=== PATIENT | female | born 1955 | race Caucasian/White ===

== ENCOUNTER 2017-09-07 20:59 | Emergency (ER) | payer OTHER ==
[~2017-09-07 20:59] MED LIST: ESOM20CA PO; OXYC5TAB PO
[2017-09-07 21:01] VITALS: TEMP 36.4; Ht 236.2 cm
[2017-09-07] MEDS ORDERED: SODIUM CHLORIDE 0.9% 1000ML 1,000 ML IV STA (21:32)
[2017-09-07] MEDS ORDERED: ONDANSETRON INJ 2 MG/ML 2 ML VIAL IV STA (21:32)
[2017-09-07] MEDS ORDERED: KETOROLAC TROMETHAMINE 30 MG/ML VIAL IV STA (21:32)
[2017-09-07] MEDS: HYDROmorphone INJ 0.5 MG/0.5 ML SYR IV PRN ×2 (21:40→22:04)
[2017-09-07 21:42] LABS: BASO % 0.1 %; BASO ABS # 0.01 K/uL (0-0.2); COMPLETE YES; EOS % 2.2 %; HEMATOCRIT 42.8 % (37-47); IG% 0.2 %; LYMPH % 20.6 %; LYMPH ABS # 2.02 K/uL (1.2-3.4); MEAN CELL VOLUME 83.6 fL (80-100); MEAN CORPUSCULAR HEMOGLOBIN 28.1 pg (25-34); MEAN CORPUSCULAR HGB CONC 33.6 g/dl (32-36); MEAN PLATELET VOLUME 9.4 fL (7.4-10.4); MONO % 5.3 %; NEUT % 71.6 %; PLATELET COUNT 309 K/uL (130-400); RED BLOOD COUNT 5.12 M/uL (4.2-5.4); WHITE BLOOD COUNT 9.79 K/uL (4.8-10.8)
[2017-09-07 21:48] LABS: ALT/SGPT 21 U/L (12-78); BLOOD UREA NITROGEN 22 mg/dl (7-18); CALCIUM 8.9 mg/dl (8.5-10.1); CARBON DIOXIDE 26 mmol/L (21-32); CHLORIDE 102 mmol/L (98-107); CREATININE 0.76 mg/dl (0.60-1.20); GLUCOSE 123 mg/dl (70-99); POTASSIUM 3.5 mmol/L (3.5-5.1); SODIUM 136 mmol/L (136-145)
[2017-09-07 21:51] LABS: ALKALINE PHOSPHATASE 80 U/L (45-117); AST/SGOT 17 U/L (15-37)
[2017-09-07 21:53] LABS: URINE APPEARANCE CLEAR (CLEAR); URINE BILIRUBIN NEG (NEG); URINE COLOR YELLOW; URINE NITRITE NEG (NEG); URINE PH 7.5 (4.5-7.5); URINE SPECIFIC GRAVITY 1.015 (1.000-1.030); UROBILINOGEN NEG (NEG)
[2017-09-07 21:57] LABS: MANUAL MICROSCOPIC REQUIRED? NO; REVIEW REQ? NO
--- NOTE | 2017-09-07 22:29 | DIAGNOSTIC IMAGING REPORT ---
ABD/PELVIS WITHOUT FOR STONE CLINICAL HISTORY: 62 years-old Female presenting with FLANK PAIN-right . TECHNIQUE: Multidetector CT of the abdomen and pelvis was performed without the use of intravenous contrast. IV contrast: None. A dose lowering technique was used consistent with the principles of ALARA (as low as reasonably achievable). COMPARISON: 08/15/2015. CT DOSE (mGy.cm): The estimated cumulative dose is 1048.86 mGy.cm. FINDINGS: Car Driver topogram: Unremarkable. Lung bases: Lungs and pleural spaces clear. Normal heart size. No pericardial or pleural effusion. Masslike region in the right breast (series 3 image 1). Liver: Normal morphology. Normal density. Biliary: No gross biliary ductal dilatation allowing for noncontrast technique. Mild gallbladder wall thickening suggested. The gallbladder is nondistended. No pericholecystic fluid or inflammatory change. Pancreas: Normal noncontrast appearance. Spleen: Normal noncontrast appearance. Adrenal glands: Normal noncontrast appearance. Kidneys and ureters: Multiple bilateral nonobstructing calculi, the largest on the right measuring 3 mm and the largest on the left measuring 2 mm. No hydronephrosis. Ureters normal. Bladder: Mild circumference of bladder wall thickening. Pelvic organs: Normal noncontrast appearance. Bowel: Normal appendix. No bowel obstruction. Peritoneal cavity: No free fluid or intraperitoneal gas. 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 Lymph nodes: Prominent subcentimeter mesenteric lymph nodes. No pathologically enlarged lymph nodes by CT size criteria. Vasculature: Atherosclerosis of the normal caliber abdominal aorta. Abdominal wall: Normal. Musculoskeletal: Normal. IMPRESSION: 1. Circumferential bladder wall thickening could suggest cystitis. Correlate with urinalysis. 2. Bilateral nephrolithiasis. No evidence of an obstructing calculus. No hydronephrosis. 3. Gallbladder wall thickening without other evidence to suggest cholecystitis. This is nonspecific. 4. Masslike region in the right breast. Dedicated mammographic evaluation recommended. Electronically signed by: Shukri Hollingsworth M.D. 09/07/2017 10:28 PM Dictated Date/Time: 09/07/2017 10:20 PM
--- NOTE | 2017-09-08 01:53 | EMERGENCY ROOM VISIT NOTE ---
History Report prepared by Ryan: Misti Potts Under the Supervision of: Dr. Jeff White M.D. First contact with patient: 21:09 Chief Complaint: KIDNEY STONE Stated Complaint: KIDNEY STONE History of Present Illness The patient is a 62 year old female who presents to the Emergency Room with complaints of an episode of kidney stones starting this evening. The patient states that she hasn't had a kidney stone in two years. She notes that she had a lithotripsy at that time. She states that the pain is a little better than it was. She states that at its peak the pain was a 12/10 in severity and currently rates her pain as a 7/10 in severity. She notes that the pain radiates from her back to her abdomen. She states that she took 3 Ibuprofen an hour and a half ago. The patient complains of nausea and vomiting. She notes that she has had a kidney infection in the past. She notes that she has not been drinking enough water lately. Pt denies LOC, headache, fevers, chills, diaphoresis, visual changes, neck pain , chest pain, breathing difficulties, melena, hematochezia, urinary symptoms, numbness, weakness, lymphadenopathy, rash, or other complaints. Source of History: patient Onset: this evening Position: other (global) Symptom Intensity: 7/10 Quality: other (like past kidney stones) Timing: other (episode) Associated Symptoms: + nausea, + vomiting, + abdominal pain, + back pain Review of Systems See HPI for pertinent positives and negatives. A total of ten systems were reviewed and were otherwise negative. Past Medical & Surgical Medical Problems: (1) History of kidney infection (2) Hx of renal calculi Surgical Problems: (1) Hx of lithotripsy Family History No pertinent family history Social History Smoking Status: Never Smoker Marital Status: Housing Status: lives with significant other Occupation Status: employed Current/Historical Medications Scheduled Esomeprazole Magnesium (Nexium), 20 MG PO QAM Allergies Coded Allergies: NO KNOWN DRUG ALLERGIES (Verified Allergy, Unknown, ., 09/07/17) Physical Exam Vital Signs Date Time Temp Pulse Resp B/P (MAP) Pulse Ox O2 Delivery O2 Flow Rate FiO2 09/08/17 01:55 80 18 139/74 98 Room Air 09/07/17 22:27 71 18 139/68 98 Room Air 09/07/17 21:01 36.4 68 18 172/120 99 Room Air Physical Exam GENERAL: Awake, alert, uncomfortable-appearing, in no distress HENT: Normocephalic, atraumatic. Oropharynx unremarkable. EYES: Normal conjunctiva. Sclera non-icteric. NECK: Supple. No nuchal rigidity. FROM. No JVD. RESPIRATORY: Clear to auscultation. CARDIAC: Regular rate, normal rhythm. Extremities warm and well perfused. Pulses equal. ABDOMEN: Soft, non-distended. RUQ tenderness to palpation. No rebound or guarding. No masses. RECTAL: Deferred. MUSCULOSKELETAL: Chest examination reveals no tenderness. The back is symmetrical on inspection without obvious abnormality. There is right CVA tenderness to palpation. No joint edema. LOWER EXTREMITIES: Calves are equal size bilaterally and non-tender. No edema. No discoloration. NEURO: Normal sensorium. No sensory or motor deficits noted. SKIN: No rash or jaundice noted. Medical Decision & Procedures ER Provider Diagnostic Interpretation: Radiology results as stated below per my review and radiologist interpretation: ABD/PELVIS WITHOUT FOR STONE CLINICAL HISTORY: 62 years-old Female presenting with FLANK PAIN-right . TECHNIQUE: Multidetector CT of the abdomen and pelvis was performed without the use of intravenous contrast. IV contrast: None. A dose lowering technique was used consistent with the principles of ALARA (as low as reasonably achievable). COMPARISON: 08/15/2015. CT DOSE (mGy.cm): The estimated cumulative dose is 1048.86 mGy.cm. FINDINGS: Health Assistant topogram: Unremarkable. Lung bases: Lungs and pleural spaces clear. Normal heart size. No pericardial or pleural effusion. Masslike region in the right breast (series 3 image 1). Liver: Normal morphology. Normal density. Biliary: No gross biliary ductal dilatation allowing for noncontrast technique. Mild gallbladder wall thickening suggested. The gallbladder is nondistended. No pericholecystic fluid or inflammatory change. Pancreas: Normal noncontrast appearance. Spleen: Normal noncontrast appearance. Adrenal glands: Normal noncontrast appearance. Kidneys and ureters: Multiple bilateral nonobstructing calculi, the largest on the right measuring 3 mm and the largest on the left measuring 2 mm. No hydronephrosis. Ureters normal. Bladder: Mild circumference of bladder wall thickening. Pelvic organs: Normal noncontrast appearance. Bowel: Normal appendix. No bowel obstruction. Peritoneal cavity: No free fluid or intraperitoneal gas. 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 Lymph nodes: Prominent subcentimeter mesenteric lymph nodes. No pathologically enlarged lymph nodes by CT size criteria. Vasculature: Atherosclerosis of the normal caliber abdominal aorta. Abdominal wall: Normal. Musculoskeletal: Normal. IMPRESSION: 1. Circumferential bladder wall thickening could suggest cystitis. Correlate with urinalysis. 2. Bilateral nephrolithiasis. No evidence of an obstructing calculus. No hydronephrosis. 3. Gallbladder wall thickening without other evidence to suggest cholecystitis. This is nonspecific. 4. Masslike region in the right breast. Dedicated mammographic evaluation recommended. Electronically signed by: Shukri Hollingsworth M.D. 09/07/2017 10:28 PM Dictated Date/Time: 09/07/2017 10:20 PM Laboratory Results 09/07/17 21:25 Red Blood Count 5.12, Mean Corpuscular Volume 83.6, Mean Corpuscular Hemoglobin 28.1, Mean Corpuscular Hemoglobin Concent 33.6, Mean Platelet Volume 9.4, Neutrophils (%) (Auto) 71.6, Lymphocytes (%) (Auto) 20.6, Monocytes (%) (Auto) 5.3, Eosinophils (%) (Auto) 2.2, Basophils (%) (Auto) 0.1, Neutrophils # (Auto) 7.00, Lymphocytes # (Auto) 2.02, Monocytes # (Auto) 0.52, Eosinophils # (Auto) 0.22, Basophils # (Auto) 0.01 09/07/17 21:25 Test 09/07/17 20:40 09/07/17 21:25 Urine Color YELLOW Urine Appearance CLEAR (CLEAR) Urine pH 7.5 (4.5-7.5) Urine Specific Willard 1.015 (1.000-1.030) Urine Protein NEG (NEG) Urine Glucose (UA) NEG (NEG) Urine Ketones NEG (NEG) Urine Occult Blood NEG (NEG) Urine Nitrite NEG (NEG) Urine Bilirubin NEG (NEG) Urine Urobilinogen NEG (NEG) Urine Leukocyte Esterase NEG (NEG) White Blood Count 9.79 K/uL (4.8-10.8) Red Blood Count 5.12 M/uL (4.2-5.4) Hemoglobin 14.4 g/dL (12.0-16.0) Hematocrit 42.8 % (37-47) Mean Corpuscular Volume 83.6 fL (80-100) Mean Corpuscular Hemoglobin 28.1 pg (25-34) Mean Corpuscular Hemoglobin Concent 33.6 g/dl (32-36) Platelet Count 309 K/uL (130-400) Mean Platelet Volume 9.4 fL (7.4-10.4) Neutrophils (%) (Auto) 71.6 % Lymphocytes (%) (Auto) 20.6 % Monocytes (%) (Auto) 5.3 % Eosinophils (%) (Auto) 2.2 % Basophils (%) (Auto) 0.1 % Neutrophils # (Auto) 7.00 K/uL (1.4-6.5) Lymphocytes # (Auto) 2.02 K/uL (1.2-3.4) Monocytes # (Auto) 0.52 K/uL (0.11-0.59) Eosinophils # (Auto) 0.22 K/uL (0-0.5) Basophils # (Auto) 0.01 K/uL (0-0.2) RDW Standard Deviation 39.1 fL (36.4-46.3) RDW Coefficient of Variation 13.0 % (11.5-14.5) Immature Granulocyte % (Auto) 0.2 % Immature Granulocyte # (Auto) 0.02 K/uL (0.00-0.02) Anion Gap 8.0 mmol/L (3-11) Estimated GFR () 98.1 Estimated GFR (Non- 84.7 BUN/Creatinine Ratio 29.0 (10-20) Calcium Level 8.9 mg/dl (8.5-10.1) Total Bilirubin 0.5 mg/dl (0.2-1) Direct Bilirubin < 0.1 mg/dl (0-0.2) Aspartate Amino Transf (AST/SGOT) 17 U/L (15-37) Alanine Aminotransferase (ALT/SGPT) 21 U/L (12-78) Alkaline Phosphatase 80 U/L (45-117) Total Protein 7.7 gm/dl (6.4-8.2) Albumin 4.2 gm/dl (3.4-5.0) Lipase 422 U/L (73-393) Laboratory results reviewed by me Medications Administered Medications (Trade) Dose Ordered Sig/Tim Route Start Time Stop Time Status Last Admin Dose Admin Ondansetron HCl (Zofran Inj) 4 mg NOW STAT IV 09/07/17 21:32 09/07/17 21:36 DC 09/07/17 21:41 4 MG Sodium Chloride 1,000 ml @ 999 mls/hr Q1H1M STAT IV 09/07/17 21:32 09/07/17 22:32 DC 09/07/17 21:41 999 MLS/HR Ketorolac Tromethamine (Toradol Inj) 10 mg NOW STAT IV 09/07/17 21:32 09/07/17 21:36 DC 09/07/17 21:41 10 MG Hydromorphone HCl (Dilaudid Inj) 0.5 mg Q15M PRN IV 09/07/17 21:45 09/21/17 21:44 09/07/17 22:04 0.5 MG ED Course 1: The patient was evaluated in room A11B. A complete history and physical exam was performed. 2: Ordered Toradol Inj 10 mg IV, NSS 1000 ml @ 999 mls/hr IV, Zofran Inj 4 mg IV. 5: Ordered Dilaudid Inj 0.5 mg PRN IV pain. 2324: I reevaluated the patient and she is feeling better. I updated her on her labs and the breast mass seen on CT. She is going for a gallbladder Ultrasound. 0150: Patient was reevaluated. She is pain-free. Repeat abdominal examination is benign. Waiting on ultrasound results. Medical Decision Triage Nursing notes reviewed. The patient's presentation and history were concerning for right flank pain Etiologies such as renal colic, biliary pathology,appendicitis, diverticulitis, mesenteric ischemia, aortic pathology, infections, inflammatory bowel disease, PUD, UTI, as well as others were entertained. The patient was evaluated. She was very uncomfortable. She noted this felt similar to renal colic she's experienced recently in the past. The patient had an IV established. She was hydrated. She is given Zofran, Toradol, and Dilaudid. On reassessment she has significant improvement in her symptoms and her pain is resolved. The patient underwent CT imaging and she started to have a thickened gallbladder wall. CBC was unremarkable. Chemistry and LFTs were unremarkable. The patient's lipase was minimally elevated at 420. The patient underwent ultrasound imaging. There was some mild gallbladder wall thickening and gallstones noted. On repeat physical examination the patient had no abdominal pain and symptoms were still resolved. The patient wishes to follow- up as an outpatient. I did discuss the case with general surgery, Dr. Garcia. Since the patient is doing exceptionally well this time and is asymptomatic he thought it was reasonable to follow her up as an outpatient. The patient was provided with his clinic information. I did discuss dietary modification. She will hydrate. She was provided a Zofran and Miller home pack in case she has some minor symptoms. No other prescriptions were given. The patient and her felt comfortable with the plan. The patient was informed about her nephrolithiasis as well as her right breast mass. I gave my usual and customary discussion regarding this issue. By the evaluation outlined above other emergent etiologies such as those listed in the differential, as well as others, were deemed relatively unlikely. The patient was educated about the findings as listed above. All questions were answered and the patient was pleased with the treatment. Return instructions were outlined and the patient was discharged in stable condition. The patient was referred to her PCP and General Surgery for follow-up for a recheck of the current condition. Medication Reconcilliation Current Medication List: was personally reviewed by me Blood Pressure Screening Patient's blood pressure: Elevated blood pressure Blood pressure disposition: Elevated BP felt to be situational Consults Time Called: 224 Consulting Physician: Dr. Garcia Returned Call: [phone] Discussed the patient's history, physical, presentation, upper findings and imaging results. As the patient is asymptomatic at this time, without a white count, has normal LFTs, and a benign abdomen. He felt outpatient follow-up was reasonable. This was conveyed to the patient and she wishes to follow-up as an outpatient with the understanding to return immediately for any problems. Impression Primary Impression: Right flank pain Additional Impressions: Biliary colic Cholelithiasis Scribe Attestation The scribe's documentation has been prepared under my direction and personally reviewed by me in its entirety. I confirm that the note above accurately reflects all work, treatment, procedures, and medical decision making performed by me. Departure Information Dispostion Home / Self-Care Referrals No Doctor, Assigned (PCP) Patient Instructions My [facility] Additional Instructions DO NOT drive, drink alcohol, operate machinery, or perform dangerous activities today. You were given medications in the ER that can affect your ability to safely function or operate a vehicle. Hydrocodone/acetaminophen 5/325mg: Take 1-2 pills every 6 hours as needed for pain. Avoid additional Acetaminophen/Tylenol, alcohol, operating machinery or dangerous equipment, working on ladders or roofs, DRIVING, or situations where being under the influence may be dangerous. It is recommended to use a stool softener such as Colace, 100mg twice daily while taking this medication to avoid constipation. Ibuprofen(Motrin, Advil) may be used for fever or pain. Use 600mg every six hours as needed. Take with food. Avoid using more than 2400mg in a 24 hour period. Do not use 2400mg per day for more than three consecutive days without physician direction. Prolonged inappropriate use can lead to stomach upset or ulcers. (AND/OR) Acetaminophen(Tylenol) may be used for fever or pain. Use 1000mg every six hours as needed. Avoid using more than 4000mg in a 24 hour period. Zofran 4 mg oral dissolving tablets: take one tablet and allow it to melt in your mouth every 4 hours as needed for nausea. Rest and drink plenty of fluids as tolerated. Slow sips of water or sports drinks are recommended instead of large amounts all at once. Continue current medications. Once your stomach is settled start with a clear liquid diet (jello, soup broth, etc.) and then advance as tolerated. You should avoid full, heavy meals for about 24 hrs from the time your symptoms resolved. Avoid fatty foods and meals. Return to the ER immediately for worsening or persistent abdominal pain, vomiting, fevers, chest pains, difficulty breathing, black or bloody stools, worsening of your condition, or as needed. Follow up with a general surgeon as discussed this coming week for a recheck of your current condition. If you should choose the number for Dr. Garcia is listed below. Follow-up with a primary physician as discussed. A mass was seen in the right breast. This needs further evaluation such as mammography or ultrasound within the next few weeks. Problem Qualifiers
[2017-09-08] MEDS ORDERED: ONDANSETRON HOME PACK 4MG OD TAB PO ONE (02:45)
[2017-09-08] MEDS ORDERED: NORCO 5/325MG HOME PACK PO ONE (02:45)
[2017-09-08 02:50] VITALS: BP 121/70; PULSE 71; O2SAT 97
--- NOTE | 2017-09-08 07:11 | DIAGNOSTIC IMAGING REPORT ---
ULTRASOUND RIGHT UPPER QUADRANT ABDOMEN CLINICAL HISTORY: Right upper quadrant abdominal pain. COMPARISON STUDY: Abdominal CT dated 09/07/2017. TECHNIQUE: Real-time, grayscale, and color flow sonography of the right upper quadrant of the abdomen was performed. Images are reviewed in the transverse and longitudinal planes. FINDINGS: Liver: The liver is normal in size and echotexture. There is no intrahepatic biliary ductal dilatation. The main portal vein is patent. Gallbladder: The gallbladder is filled with numerous shadowing calculi. The gallbladder wall appears thickened and edematous measuring up to 6 mm. No pericholecystic fluid is seen. A sonographic Chau's sign could not be assessed due to analgesia. The common bile duct measures up to 0.7 cm in diameter. Pancreas: Visualized portions of the pancreatic head and body are normal in appearance. The splenic vein is patent. Right kidney: Survey images of the right kidney demonstrate cortical atrophy. There is no hydronephrosis. A 3 mm nonobstructing calculus is identified. Ascites: None. IMPRESSION: 1. The gallbladder is filled with shadowing calculi. The gallbladder wall is thickened and edematous, and the findings are concerning for acute cholecystitis. Surgical consultation is advised. This could be further assessed with a nuclear hepatobiliary scan if clinically warranted. 2. Nonobstructing right renal calculus. Electronically signed by: Wilfredo Spence M.D. 09/08/2017 7:10 AM Dictated Date/Time: 09/08/2017 7:08 AM
== END 2017-09-08 02:51 | disposition home or self-care (01) ==
LOC: C.EDB 21:01 → C.EDA 09-08 02:51
DX: K80.50 Calculus of bile duct without cholangitis or cholecystitis without obstruction (principal); K80.20 Calculus of gallbladder without cholecystitis without obstruction; Z87.442 Personal history of urinary calculi